=== PATIENT | female | born 1940 | race Caucasian/White ===

== ENCOUNTER 2016-12-04 01:20 | Emergency (ER) | payer OTHER ==
[2016-12-04 01:21] VITALS: BMI 28.3
[2016-12-04] MEDS ORDERED: NS 1,000 ML IV ONE (01:37)
[2016-12-04] MEDS ORDERED: Albuterol/Ipratropium Neb 3 ML NEB NEB ONE (01:37)
[2016-12-04] MEDS ORDERED: METHYLPREDNISOLONE 125 MG/2 ML VIAL IV ONE (01:37)
--- NOTE | 2016-12-04 01:37 | EDPRACDOC ---
- General Information Chief Complaint: Flu-Like Symptoms Stated Complaint: COUGH/CONGESTION Time Seen by Provider: 12/04/16 01:31 Home Medications: Home Medications Furosemide [Lasix] 20 mg PO DAILY 12/24/14 Oxybutynin [Ditropan] 5 mg PO BID 12/24/14 POTASSIUM CHLORIDE Tablet [K-DUR 20 mEq Tablet*] 10 meq PO DAILY 12/24/14 Acetaminophen Tablet [TYLENOL Tablet] 325 mg PO Q6H PRN 12/11/15 Azelastine HCl [Astepro] 205.5 mcg NS DAILY 12/11/15 Losartan Potassium 50 mg PO DAILY 12/11/15 Ranitidine HCl 150 mg PO DAILY 12/11/15 Vitamin B12 1,000 mcg PO DAILY 12/11/15 Cholecalciferol (Vitamin D3) [Vitamin D3] 2,000 unit PO DAILY 03/15/16 Docusate Sodium 100 mg PO BID 03/15/16 LIDOCAINE 2% Viscous [Xylocaine 2% Viscous] 15 ml PO Q8H PRN #4 day 03/15/16 Pantoprazole Sodium 20 mg PO BID 03/15/16 Vit A/Vit C/Vit E/Zinc/Copper [Preservision Areds Softgel] 1 each PO DAILY 03/15 Azithromycin [Zithromax] 0 mg PO DAILY #6 tablet 12/04/16 Hydrocodone Bit/Homatropine [Hycodan Syrup] 5 ml PO Q6 PRN #120 syrup 12/04/16 Prednisone [Deltasone, Orasone] 40 mg PO DAILY 5 Days 12/04/16 Allergies/Adverse Reactions: Allergies Allergy/AdvReac Type Severity Reaction Status Date / Time Penicillins Allergy Intermediate Edema-Gener Verified 12/04/16 02:06 alized promethazine HCl Allergy Anxiety Verified 12/04/16 02:06 [From Phenergan] - History of Present Illness Onset: 2 WEEKS HPI: PT STATES NON-PROD COUGH, CONGESTION, HEADACHE, SOBR, WHEEZING X 2 WEEKS, HAS SEEN PCP WITHOUT RELIEF, USING NEBS AT HOME WITHOUT RELIEF, STATES THAT WAS UNABLE TO SLEEP TONIGHT DUE TO CONSTANT COUGHING. Shortness of Breath: Moderate Relevant History: Reports: Asthma, COPD Cough: Reports: Non-productive Rhinorrhea: Reports: Clear Ear Symptoms: Reports: None SOB Worsens with: Reports: Nothing SOB Improves with: Reports: Nothing Recently treated infections:: Reports: URI Associated Signs and symptoms: Reports: Cough, Headache, Nasal Symptoms, Sore Throat, Myalgia ED Past Medical History - History Reviewed Yes Nurses notes reviewed and agree except as marked - Patient Medical History Cardiac History: Reports: Atrial Fibrillation, Hypertension, Hypercholesterolemia, Syncope Respiratory History: Reports: Asthma (dx as adult. PRN neb/inhalers.), COPD, Pneumonia GI/ History: Reports: Urinary Tract Infection, Kidney Stones, Gastroesophageal Reflux Musculoskeletal History: Reports: Arthritis Psychological History: Reports: Depression, Anxiety. Denies: Substance Use Disorder Systemic History: Reports: Cancer (breast), Anemia Surgical History: Reports: Cholecystectomy, Hysterectomy, Other (Knee, umbilical hernia surgery) Date of Last Radiation Treatment: Y - Family Medical History Reports: Hypertension, Cancer (sister: breast cancer. sister: uterine cancer.), Stroke (MOTHER), Cardiac Disorders. Denies: Diabetes - Social Medical History Smoking Status: Never smoker Social History: Denies: Substance Use Disorder ETOH: None Substance Abuse: None EDM Review of Systems - Review of Systems Constitutional: negative: Chills, Fever Eyes: negative: Blurred Vision, Double Vision Ears: negative: Drainage Throat: negative: Pain Nose: Congestion. negative: Discharge Respiratory: Cough, Shortness of Breath, Wheezing Cardiovascular: negative: Chest Pain, Palpitations Gastrointestinal: negative: Diarrhea, Nausea, Pain, Vomiting Genitourinary: negative: Dysuria, Frequency Neurological: Headache. negative: Dizziness, Numbness, Weakness Musculoskeletal: No Symptoms Reported Integumentary: No Symptoms Reported - Physical Exam Constitutional: Alert (Awake), No apparent distress Oriented to: Time, Person, Place Last recorded Vital Signs: Oxygen Pulse Oxygen Saturation O2 Device Oxygen Flow Rate Fraction of Inspired Oxygen ( FIO2) - HEENT Head: Normal ( normocephalic) Eye Exam: Normal (PERRL, EOMI, Sclera white) Oropharynx: Normal (Pharynx:Moist without exudate,Gums-no swelling) Tympanic Membrane: Normal ENT EAC: Normal TMJ: Normal Nose: No Symptoms Reported (septum midline) Neck: Normal (FROM, trachea at midline) - Respiratory/Cardiovascular Respiratory: Wheezes. negative: Accessory Muscle Use, Retractions, Rhonchi Cardiovascular: Normal (RRR without murmur, gallop or rub) - GI Auscultation: Normal (NABS) Palpation: Normal (Soft,No rebound or guarding, non distended) Tenderness: Non tender Kate's Sign: Negative - Musculoskeletal Back: Normal (Non-Tender) Extremities: Normal (Normal tone, Pulses 2+ No cyanosis or edema, FROM) - Integumentary Skin: Normal, Warm, Dry Lymphatics: Normal (no adenopathy) - Neurologic Memory Impaired: Normal Motor Function: Normal (Normal tone, Pulses 2+ No cyanosis or edema, FROM) Cranial Nerve: Normal (CN II-X11 intact sensation, strength 5/5) Cerebellar: Normal Mood Description: Normal Perception: Normal ED SOB MDM - Differential Diagnosis Differential Diagnosis: Asthma, Heart Failure, Pnuemonia, Pneumothorax - Re-evaluation Re-evaluation 1 Re-evaluation Time: 02:45 (FEELS BETTER, LESS COUGHING AFTER TUSSIONEX) - Results Result Diagrams: 12/04/16 01:35 12/04/16 01:35 Results: 12/04/16 02:44 Laboratory Results - last 24 hr 12/04/16 12/04/16 12/04/16 01:35 01:35 01:35 WBC 8.7 RBC 3.97 L Hgb 11.3 L Hct 34.0 L MCV 86 MCH 28.4 MCHC 33.2 RDW 14.2 Plt Count 253 MPV 8.9 Neut % (Auto) 62.6 Lymph % (Auto) 21.4 [place] % (Auto) 9.7 Eos % (Auto) 5.7 H Baso % (Auto) 0.6 Absolute Neuts (auto) 5.39 Absolute Lymphs (auto) 1.83 PT 10.6 INR 1.0 APTT 25.9 Puncture Site pH pCO2 pO2 HCO3 Total CO2 Base Excess FiO2 % Specimen Drawn By Sodium 139 Potassium 3.3 L Chloride 104 Carbon Dioxide 23 Anion Gap 15 BUN 13 Creatinine 0.80 Estimated GFR (MDRD) > 60 Glucose 108 H Calculated Osmolality 269 L Calcium 9.3 Total Bilirubin 0.6 AST 22 ALT 25 Alkaline Phosphatase 88 Troponin I < 0.01 [id number] Pept 117 Total Protein 7.6 Albumin 4.0 12/04/16 01:50 WBC RBC Hgb Hct MCV MCH MCHC RDW Plt Count MPV Neut % (Auto) Lymph % (Auto) [place] % (Auto) Eos % (Auto) Baso % (Auto) Absolute Neuts (auto) Absolute Lymphs (auto) PT INR APTT Puncture Site Right radial pH 7.410 pCO2 36.0 pO2 82.0 HCO3 22.8 Total CO2 23.9 Base Excess -1.4 FiO2 % Ra Specimen Drawn By Bkl Sodium Potassium Chloride Carbon Dioxide Anion Gap BUN Creatinine Estimated GFR (MDRD) Glucose Calculated Osmolality Calcium Total Bilirubin AST ALT Alkaline Phosphatase Troponin I [id number] Pept Total Protein Albumin - EKG EKG #1 EKG Time: 01:46 -: Yes EKG interpreted by me Rate: bpm: 76 [place]: Normal Rhythm: NSR Block: None ST: Nonsp Comparison: 12/24/14 (NO CHANGE) - Diagnostic Imaging CXR Image interpreted by: Radiologist Diagnostic Imaging Comments: CHEST 2 VIEW COMPARISON: Radiograph dated 03/15/2016 FINDINGS: Two views of the chest demonstrate emphysematous changes of the lungs. There is no focal consolidation, pleural effusion, or pneumothorax. Stable cardiac silhouette. No acute osseous pathology. IMPRESSION: Emphysema. No focal consolidation or pneumothorax. Decision Time to Discharge: 02:47 - Departure Disposition: Home Condition: Stable Final Diagnosis: Acute bronchitis Instructions: Acute Bronchitis (ED) Education/Counseling Given To: Patient, Family Member Education/Counseling Given Regarding: Diagnosis, Treatment, Prognosis, Follow Up Referrals: Sarah Apple MD [Primary Care Provider] - One Week Prescriptions: Azithromycin [Zithromax] 0 mg PO DAILY #6 tablet Hydrocodone Bit/Homatropine [Hycodan Syrup] 5 ml PO Q6 PRN #120 syrup PRN Reason: Cough Prednisone [Deltasone, Orasone] 40 mg PO DAILY 5 Days Additional Instructions: REST, DRINK PLENTY OF FLUIDS, CONTINUE YOUR USUAL MEDICATIONS BEFORE, RETURN TO THE ED FOR ANY WORSENING SYMPTOMS OR CONCERNS.
[2016-12-04] MEDS ORDERED: TUSSIONEX 5 ML ORAL SYRINGE PO ONE (01:38)
[2016-12-04 01:54] LABS: ALLEN'S TEST PASS; BEb -1.4 (+/- 2); TCO2 23.9 MMOL/L (23-27)
[2016-12-04 01:54] LABS: AUTOMATED BASOPHIL 0.6 % (0-2); AUTOMATED EOSINOPHIL 5.7 % (0-5); AUTOMATED LYMPH 21.4 % (17-44); AUTOMATED MONOCYTE 9.7 % (3-10); AUTOMATED NEUTROPHIL 62.6 % (45-76); MPV 8.9 fL (7.4-10.4)
[2016-12-04 01:55] LABS: ABG Draw Site Right Radial; ABG Draw Tech BKL
[2016-12-04 02:00] LABS: BLOOD UREA NITROGEN 13 MG/DL (7-17); CALCIUM 9.3 MG/DL (8.4-10.2); CALCULATED OSMOLALITY 269 MOs/Kg (270-290); CHLORIDE 104 mEq/L (98-107); GLUCOSE 108 MG/DL (70-99); SODIUM LEVEL 139 mEq/L (137-146); TOTAL PROTEIN 7.6 G/DL (6.3-8.2)
[2016-12-04 02:01] LABS: PARTIAL THROMB. TIME 25.9 SEC (22-35)
[2016-12-04 02:03] VITALS: TEMP 98.6
[2016-12-04] MEDS ORDERED: ACETAMINOPHEN 325 MG/TAB TABLET PO ONE (02:27)
--- NOTE | 2016-12-04 02:43 | DIRPT ---
CLINICAL DATA: 76-year-old female with shortness of breath EXAM: CHEST 2 VIEW COMPARISON: Radiograph dated 03/15/2016 FINDINGS: Two views of the chest demonstrate emphysematous changes of the lungs. There is no focal consolidation, pleural effusion, or pneumothorax. Stable cardiac silhouette. No acute osseous pathology. IMPRESSION: Emphysema. No focal consolidation or pneumothorax. Electronically Signed By: Az Silva M.D. On: 12/04/2016 02:40
[2016-12-04 03:09] VITALS: BP 122/74; PULSE 63
== END 2016-12-04 03:09 | disposition home or self-care (01) ==
LOC: ED 01:20
DX: J20.9 Acute bronchitis, unspecified (principal)
CPT/HCPCS: 36415; 36600; 71020; 80053; 82803; 83880; 84484; 85025; 85610; 85730; 87040; 93005; 94640; 96361; 96374; 99283; A9270; J2930; J7620; J3490